=== PATIENT | male | born 1990 ===

== ENCOUNTER → 2021-09-28 | Outpatient (CLI) | payer OTHER | LOC: MHCPAIN 08:51 | DX: M47.896 Other spondylosis, lumbar region (principal); G57.81 Other specified mononeuropathies of right lower limb; G89.29 Other chronic pain | CPT/HCPCS: G0463 ==

== ENCOUNTER → 2021-10-12 | Outpatient (CLI) | payer OTHER | LOC: MHCPAIN 10:48 | CPT/HCPCS: J1040 ==

== ENCOUNTER → 2021-10-26 | Outpatient (CLI) | payer OTHER | LOC: MHCPAIN 10:48 | DX: M79.2 Neuralgia and neuritis, unspecified (principal); G57.82 Other specified mononeuropathies of left lower limb | CPT/HCPCS: J1040; Q9967 ==